=== PATIENT | male | born 1940 | race Caucasian/White ===

== ENCOUNTER 2023-11-28 11:52 | Inpatient (IN) | payer MEDICARE, OTHER, SELFPAY ==
[2023-11-28 12:47] LABS: #Basophils 0.1 thou/uL (0.0-0.2); #Eosinphils 0.2 thou/uL (0.0-0.7); #Monocytes 1.4 thou/uL (0.11-0.59); #Neutrophils 7.5 thou/uL (1.40-6.50); %Basophils 0.7 % (0.0-1.0); %Eosinophils 1.8 % (0.0-10.0); %Lymphocytes 8.1 % (21.0-51.0); %Monocytes 13.3 % (0.0-10.0); %Neutrophils 73.9 % (42.0-75.0); Hematocrit 24.5 % (42.0-52.0); Hemoglobin 7.9 g/dL (14.0-18.0); Mean Corpuscular HGB CONC 32.2 g/dL (32.0-36.0); Mean Corpuscular Hemoglobin 31.2 pg (27.0-31.0); Mean Corpuscular Volume 96.8 fl (78.0-98.0); Mean Platelet Volume 9.6 fL (7.4-10.4); Platelet Count 419 10x3/uL (130-400); RBC Distribution Width 20.6 % (11.5-14.5); Red Blood Cell (RBC) Count 2.53 mill/uL (4.70-6.10); White Blood Cell (WBC) Count 10.2 10x3/uL (4.8-10.8)
[2023-11-28] MEDS ORDERED: Ondansetron PF 4 MG/2 ML Vial ONE (12:54)
[2023-11-28 13:02] LABS: INR-International Normal Ratio 1.6; Prothrombin Time 19.1 sec (12.0-14.7)
[2023-11-28 13:14] LABS: ALT (SGPT) 39 U/L (8-55); AST (SGOT) 55 U/L (5-34); Albumin 3.6 g/dL (3.4-4.8); Alkaline Phosphatase 484 U/L (40-110); Anion Gap 14 mmol/L (10-20); BUN (Urea Nitrogen) 31 mg/dL (8.4-25.7); Calc. Creatinine Clearance 0 mL/min (70-130); Calcium 9.6 mg/dL (7.8-10.44); Carbon Dioxide 26 mmol/L (23-31); Chloride 99 mmol/L (98-107); Estimated GFR 38; Globulin 3.7 g/dL (2.4-3.5); Glucose 135 mg/dL (83-110); Lipase 67 U/L (8-78); Protein, Total 7.3 g/dL (5.8-8.1); Sodium 133 mmol/L (136-145)
[2023-11-28 13:16] LABS: Troponin I 0.046 ng/mL (< 0.028)
[2023-11-28 13:19] LABS: Critical Call Chemistry NUR.LR15@1319; Potassium 6.3 mmol/L (3.5-5.1)
[2023-11-28] MEDS ORDERED: Furosemide 40 MG (4 mL) VIAL ONE (14:53)
[2023-11-28] MEDS ORDERED: Senokot S 8.6-50 MG TAB PO PRN (15:14)
[2023-11-28] MEDS ORDERED: Calcium Carbonate 500 MG ChewTAB PO PRN (15:14)
[2023-11-28] MEDS ORDERED: Ondansetron ODT 4 MG TAB PO PRN (15:14)
[2023-11-28] MEDS: Albumin 5% 25 GM (500 mL) BOT IVPB SCH (16:13)
[2023-11-28] MEDS: LOKELMA 10 GM PACKET PO SCH ×2 (16:14→22:55)
[2023-11-28 16:55] LABS: Anion Gap 16 mmol/L (10-20); BUN (Urea Nitrogen) 32 mg/dL (8.4-25.7); Calc. Creatinine Clearance 0 mL/min (70-130); Calcium 9.3 mg/dL (7.8-10.44); Carbon Dioxide 20 mmol/L (23-31); Chloride 102 mmol/L (98-107); Estimated GFR 35; Glucose 124 mg/dL (83-110); Sodium 132 mmol/L (136-145)
[2023-11-28 17:04] LABS: Critical Call Chemistry NUR.MKL@1704; Potassium 6.3 mmol/L (3.5-5.1)
[2023-11-28] MEDS ORDERED: Dextrose 10% in Water 250 ML ONE (17:57)
[2023-11-28] MEDS ORDERED: Sodium Polystyrene Sulfonate 15 GM (60 mL) BOT ONE (17:58)
[2023-11-28] MEDS ORDERED: Insulin Regular 300 UNITS/3 ML VIAL ONE (17:58)
[2023-11-28] MEDS ORDERED: Acetaminophen 325 MG TAB ONE (17:59)
[2023-11-28] MEDS: Acetaminophen 325 MG TAB PO PRN (18:20)
[2023-11-28] MEDS: Dextrose 50% Abboject 50 ML SYRINGE SLOW IVP PRN (18:27)
[2023-11-28] MEDS: Sodium Polystyrene Sulfonate 15 GM (60 mL) BOT PO SCH (18:29)
[2023-11-28] MEDS: Insulin Regular 300 UNITS/3 ML VIAL IVP SCH (18:48)
[2023-11-28 21:06] LABS: Troponin I 0.047 ng/mL (< 0.028)
[2023-11-28] MEDS: Rosuvastatin 5 MG TAB PO SCH (22:56)
[2023-11-28 23:07] LABS: Potassium 5.3 mmol/L (3.5-5.1)
[2023-11-29] MEDS: Albumin 25% 25 GM (100 mL) BOT IVPB SCH (01:50)
[2023-11-29 05:05] LABS: #Eosinphils 0.3 thou/uL (0.0-0.7); #Monocytes 1.1 thou/uL (0.11-0.59); #Neutrophils 4.2 thou/uL (1.40-6.50); %Basophils 0.6 % (0.0-1.0); %Eosinophils 4.9 % (0.0-10.0); %Monocytes 16.2 % (0.0-10.0); %Neutrophils 64.2 % (42.0-75.0); Hematocrit 20.1 % (42.0-52.0); Hemoglobin 6.5 g/dL (14.0-18.0); Mean Corpuscular HGB CONC 32.3 g/dL (32.0-36.0); Mean Corpuscular Hemoglobin 30.5 pg (27.0-31.0); Mean Corpuscular Volume 94.4 fl (78.0-98.0); Mean Platelet Volume 9.7 fL (7.4-10.4); RBC Distribution Width 20.5 % (11.5-14.5); Red Blood Cell (RBC) Count 2.13 mill/uL (4.70-6.10); White Blood Cell (WBC) Count 6.5 10x3/uL (4.8-10.8)
[2023-11-29 05:06] LABS: Platelet Count 300 10x3/uL (130-400)
[2023-11-29 05:18] LABS: INR-International Normal Ratio 1.4; Prothrombin Time 17.4 sec (12.0-14.7)
[2023-11-29 05:35] LABS: ALT (SGPT) 29 U/L (8-55); AST (SGOT) 41 U/L (5-34); Albumin 3.8 g/dL (3.4-4.8); Alkaline Phosphatase 379 U/L (40-110); Anion Gap 14 mmol/L (10-20); BUN (Urea Nitrogen) 35 mg/dL (8.4-25.7); Bilirubin, Total 1.3 mg/dL (0.2-1.2); Calc. Creatinine Clearance 26 mL/min (70-130); Calcium 9.1 mg/dL (7.8-10.44); Carbon Dioxide 26 mmol/L (23-31); Chloride 99 mmol/L (98-107); Estimated GFR 29; Glucose 106 mg/dL (83-110); Iron 33 ug/dL (65-175); Magnesium 2.2 mg/dL (1.6-2.6); Potassium 4.5 mmol/L (3.5-5.1); Protein, Total 6.8 g/dL (5.8-8.1); Sodium 134 mmol/L (136-145)
[2023-11-29 05:38] LABS: Iron Binding Capacity, Total 280 mcg/dL (261-462)
[2023-11-29] MEDS: Folic Acid 1 MG TAB PO SCH (09:36)
[2023-11-29] MEDS: Multivit, Therapeutic 1 TAB PO SCH (09:36)
[2023-11-29] MEDS: Thiamine 100 MG TAB PO SCH (09:36)
[2023-11-29] MEDS ORDERED: Piperacillin/Tazobactam 3.375 GM in Sodium Chloride 0.9% 100 ML IVPB SCH (10:15)
[2023-11-29] MEDS: Furosemide 40 MG (4 mL) VIAL SLOW IVP SCH (10:43)
[2023-11-29] MEDS: EPOETIN ALFA-EPBX 10,000 UNITS/ML VIAL SC SCH (10:45)
[2023-11-29] MEDS: Cefepime 1 GM in Sodium Chloride 0.9% 100 ML IVPB SCH (11:07)
[2023-11-29] MEDS: metroNIDAZOLE 500 MG in Premix 1 BAG IVPB SCH (11:55)
[2023-11-29] MEDS ORDERED: Furosemide 40 MG (4 mL) VIAL SLOW IVP SCH (17:30)
[2023-11-29] MEDS ORDERED: Furosemide 100 MG in Sodium Chloride 0.9% 100 ML IVPB SCH (17:45)
[2023-11-29] MEDS: DOBUTamine 500 mg/250 ml 250 ML IVPB SCH (18:41)
[2023-11-29] MEDS: Furosemide 100 MG, Admixture Fee 1 EACH in Sodium Chloride 0.9% 90 ML IVPB SCH (18:41)
[2023-11-29 18:44] LABS: Creatinine, Urine 106.65 mg/dL (63-166)
[2023-11-29] MEDS ORDERED: Ipratropium/Albuterol 3 ML NEB NEB PRN (23:35)
[2023-11-30] MEDS: Ipratropium/Albuterol 3 ML NEB NEB SCH (01:56)
[2023-11-30 06:45] LABS: Anion Gap 17 mmol/L (10-20); BUN (Urea Nitrogen) 40 mg/dL (8.4-25.7); Calc. Creatinine Clearance 25 mL/min (70-130); Calcium 8.9 mg/dL (7.8-10.44); Carbon Dioxide 22 mmol/L (23-31); Chloride 97 mmol/L (98-107); Estimated GFR 27; Glucose 123 mg/dL (83-110); Potassium 3.6 mmol/L (3.5-5.1); Sodium 132 mmol/L (136-145)
[2023-11-30] MEDS: Ferrous Gluconate 324 MG TAB PO SCH (09:33)
[2023-11-30] MEDS: Cholecalciferol 1,000 UNITS (25 MCG) TAB PO SCH (09:33)
[2023-11-30 10:10] LABS: #Eosinphils 0.2 thou/uL (0.0-0.7); #Monocytes 0.8 thou/uL (0.11-0.59); #Neutrophils 6.2 thou/uL (1.40-6.50); %Basophils 0.1 % (0.0-1.0); %Lymphocytes 4.2 % (21.0-51.0); %Monocytes 10.6 % (0.0-10.0); %Neutrophils 82.2 % (42.0-75.0); Hematocrit 21.1 % (42.0-52.0); Hemoglobin 7.1 g/dL (14.0-18.0); Mean Corpuscular HGB CONC 33.6 g/dL (32.0-36.0); Mean Corpuscular Hemoglobin 31.7 pg (27.0-31.0); Mean Corpuscular Volume 94.2 fl (78.0-98.0); Mean Platelet Volume 9.4 fL (7.4-10.4); Platelet Count 249 10x3/uL (130-400); RBC Distribution Width 19.7 % (11.5-14.5); Red Blood Cell (RBC) Count 2.24 mill/uL (4.70-6.10); White Blood Cell (WBC) Count 7.5 10x3/uL (4.8-10.8)
[2023-12-01 03:59] LABS: #Eosinphils 0.3 thou/uL (0.0-0.7); #Monocytes 1.3 thou/uL (0.11-0.59); #Neutrophils 5.4 thou/uL (1.40-6.50); %Basophils 0.3 % (0.0-1.0); %Eosinophils 3.4 % (0.0-10.0); %Monocytes 16.9 % (0.0-10.0); %Neutrophils 72.6 % (42.0-75.0); Hemoglobin 7.4 g/dL (14.0-18.0); Mean Corpuscular HGB CONC 33.6 g/dL (32.0-36.0); Mean Corpuscular Hemoglobin 30.7 pg (27.0-31.0); Mean Platelet Volume 9.7 fL (7.4-10.4); Platelet Count 255 10x3/uL (130-400); RBC Distribution Width 19.5 % (11.5-14.5); Red Blood Cell (RBC) Count 2.41 mill/uL (4.70-6.10); White Blood Cell (WBC) Count 7.5 10x3/uL (4.8-10.8)
[2023-12-01 04:23] LABS: Mean Corpuscular Volume 91.3 fl (78.0-98.0)
[2023-12-01 04:47] LABS: Anion Gap 18 mmol/L (10-20); BUN (Urea Nitrogen) 40 mg/dL (8.4-25.7); Calc. Creatinine Clearance 28 mL/min (70-130); Carbon Dioxide 19 mmol/L (23-31); Chloride 99 mmol/L (98-107); Estimated GFR 31; Glucose 102 mg/dL (83-110); Potassium 3.3 mmol/L (3.5-5.1); Sodium 133 mmol/L (136-145)
[2023-12-01] MEDS: Potassium Chloride 20 MEQ TAB PO SCH ×2 (09:05→17:29)
[2023-12-01] MEDS: Metoprolol Tartrate 5 MG (5 mL) VIAL IVP SCH (22:18)
[2023-12-02] MEDS: Melatonin 3 MG TAB PO SCH (01:36)
[2023-12-02] MEDS: Metoprolol Tartrate 5 MG (5 mL) VIAL IVP SCH (03:40)
[2023-12-02 05:37] LABS: #Eosinphils 0.5 thou/uL (0.0-0.7); #Monocytes 0.9 thou/uL (0.11-0.59); #Neutrophils 4.6 thou/uL (1.40-6.50); %Basophils 0.5 % (0.0-1.0); %Lymphocytes 5.5 % (21.0-51.0); %Monocytes 14.3 % (0.0-10.0); %Neutrophils 72.2 % (42.0-75.0); Hematocrit 24.5 % (42.0-52.0); Mean Corpuscular HGB CONC 32.7 g/dL (32.0-36.0); Mean Corpuscular Hemoglobin 31.1 pg (27.0-31.0); Mean Corpuscular Volume 95.3 fl (78.0-98.0); Mean Platelet Volume 9.4 fL (7.4-10.4); Platelet Count 263 10x3/uL (130-400); RBC Distribution Width 20.2 % (11.5-14.5); Red Blood Cell (RBC) Count 2.57 mill/uL (4.70-6.10); White Blood Cell (WBC) Count 6.4 10x3/uL (4.8-10.8)
[2023-12-02 05:53] LABS: Anion Gap 14 mmol/L (10-20); BUN (Urea Nitrogen) 34 mg/dL (8.4-25.7); Calc. Creatinine Clearance 36 mL/min (70-130); Carbon Dioxide 22 mmol/L (23-31); Chloride 101 mmol/L (98-107); Estimated GFR 41; Glucose 95 mg/dL (83-110); Magnesium 2.1 mg/dL (1.6-2.6); Potassium 3.6 mmol/L (3.5-5.1); Sodium 133 mmol/L (136-145)
[2023-12-02] MEDS: Metoprolol Tartrate 50 MG TAB PO SCH (08:01)
[2023-12-03 04:41] LABS: #Eosinphils 0.4 thou/uL (0.0-0.7); #Monocytes 1.1 thou/uL (0.11-0.59); #Neutrophils 4.1 thou/uL (1.40-6.50); %Basophils 0.5 % (0.0-1.0); %Eosinophils 6.4 % (0.0-10.0); %Lymphocytes 7.2 % (21.0-51.0); %Monocytes 17.6 % (0.0-10.0); %Neutrophils 67.8 % (42.0-75.0); Hematocrit 24.8 % (42.0-52.0); Mean Corpuscular HGB CONC 32.3 g/dL (32.0-36.0); Mean Corpuscular Volume 96.1 fl (78.0-98.0); Mean Platelet Volume 9.2 fL (7.4-10.4); Platelet Count 257 10x3/uL (130-400); RBC Distribution Width 20.2 % (11.5-14.5); Red Blood Cell (RBC) Count 2.58 mill/uL (4.70-6.10)
[2023-12-03 05:06] LABS: Anion Gap 15 mmol/L (10-20); BUN (Urea Nitrogen) 35 mg/dL (8.4-25.7); Calc. Creatinine Clearance 40 mL/min (70-130); Calcium 8.7 mg/dL (7.8-10.44); Carbon Dioxide 21 mmol/L (23-31); Chloride 102 mmol/L (98-107); Estimated GFR 48; Glucose 87 mg/dL (83-110); Potassium 3.9 mmol/L (3.5-5.1); Sodium 134 mmol/L (136-145)
[2023-12-03] MEDS: Cefepime 1 GM in Sodium Chloride 0.9% 100 ML IVPB SCH (07:52)
[2023-12-03] MEDS: Saccharomyces boulardii 250 MG CAP PO SCH (12:11)
[2023-12-03] MEDS: Metolazone 5 MG TAB PO SCH (12:11)
[2023-12-03] MEDS: Clindamycin 150 MG CAP PO SCH (14:29)
[2023-12-03] MEDS: Metoprolol Tartrate 50 MG TAB PO SCH ×2 (14:34→22:48)
[2023-12-03] MEDS: Heparin 5,000 UNITS/ML VIAL SC SCH (20:10)
[2023-12-04 05:05] LABS: Anion Gap 14 mmol/L (10-20); BUN (Urea Nitrogen) 34 mg/dL (8.4-25.7); Calc. Creatinine Clearance 41 mL/min (70-130); Calcium 9.2 mg/dL (7.8-10.44); Carbon Dioxide 23 mmol/L (23-31); Chloride 104 mmol/L (98-107); Estimated GFR 50; Glucose 93 mg/dL (83-110); Potassium 3.6 mmol/L (3.5-5.1); Sodium 137 mmol/L (136-145)
[2023-12-04] MEDS: Metolazone 2.5 MG TAB PO SCH (08:35)
[2023-12-04] MEDS: Empagliflozin 10 MG TAB PO SCH (08:36)
[2023-12-04] MEDS: Saccharomyces boulardii 250 MG CAP PO SCH (08:36)
[2023-12-04] MEDS: Potassium Chloride 20 MEQ TAB PO SCH (08:37)
[2023-12-04] MEDS ORDERED: methylPREDNISolone Sod Succ/PF 125 MG/2 ML VIAL IVP SCH (09:45)
[2023-12-04 10:03] LABS: ALT (SGPT) 19 U/L (8-55); AST (SGOT) 30 U/L (5-34); Albumin 3.8 g/dL (3.4-4.8); Alkaline Phosphatase 273 U/L (40-110); Bilirubin, Direct 0.6 mg/dL (0.1-0.3); Protein, Total 6.8 g/dL (5.8-8.1)
[2023-12-05 04:17] LABS: Hematocrit 24.2 % (42.0-52.0); Hemoglobin 7.8 g/dL (14.0-18.0); Manual Diff?? YES; Mean Corpuscular HGB CONC 32.2 g/dL (32.0-36.0); Mean Corpuscular Hemoglobin 31.1 pg (27.0-31.0); Mean Corpuscular Volume 96.4 fl (78.0-98.0); Platelet Count 233 10x3/uL (130-400); RBC Distribution Width 19.6 % (11.5-14.5); Red Blood Cell (RBC) Count 2.51 mill/uL (4.70-6.10); White Blood Cell (WBC) Count 4.8 10x3/uL (4.8-10.8)
[2023-12-05 04:20] LABS: Delete Auto Diff?? YES
[2023-12-05 04:53] LABS: Anion Gap 14 mmol/L (10-20); BUN (Urea Nitrogen) 32 mg/dL (8.4-25.7); Calc. Creatinine Clearance 41 mL/min (70-130); Calcium 9.1 mg/dL (7.8-10.44); Carbon Dioxide 24 mmol/L (23-31); Chloride 101 mmol/L (98-107); Estimated GFR 50; Glucose 108 mg/dL (83-110); Potassium 3.2 mmol/L (3.5-5.1); Sodium 136 mmol/L (136-145)
[2023-12-05 04:54] LABS: Anisocytosis SLIGHT = 6-15 cells HPF (0-5); Band 5 % (5-11); CellaVision Operator ID LAB.CLH1; Eosinophils 7 % (0-10); Hypochromia SLIGHT = 6-15 cells HPF (0-5); Lymphocytes 7 % (21-51); Monocytes 12 % (0-10); Neutrophil 66 % (42-75); Platelet Adequacy Comment Platelets Normal; Polychromasia SLIGHT = 2-3 cells HPF (0-2); Target Cells SLIGHT = 2-5 cells HPF (0-1); Total Cell Count 100
[2023-12-05] MEDS ORDERED: Electrolyte Replacement Protocol 1 EACH FS SCH (07:30)
[2023-12-05] MEDS ORDERED: Electrolyte Replacement Protocol FS PRN (07:45)
[2023-12-05] MEDS: Potassium Chloride 20 MEQ TAB PO SCH (08:10)
[2023-12-05 15:49] VITALS: BMI 26.1
[2023-12-06 05:34] LABS: Hematocrit 24.6 % (42.0-52.0); Hemoglobin 7.9 g/dL (14.0-18.0); Manual Diff?? YES; Mean Corpuscular HGB CONC 32.1 g/dL (32.0-36.0); Mean Corpuscular Hemoglobin 30.2 pg (27.0-31.0); Mean Corpuscular Volume 93.9 fl (78.0-98.0); Mean Platelet Volume 9.5 fL (7.4-10.4); Platelet Count 229 10x3/uL (130-400); RBC Distribution Width 19.6 % (11.5-14.5); Red Blood Cell (RBC) Count 2.62 mill/uL (4.70-6.10); White Blood Cell (WBC) Count 4.9 10x3/uL (4.8-10.8)
[2023-12-06 05:49] LABS: Delete Auto Diff?? YES
[2023-12-06 06:04] LABS: Anion Gap 14 mmol/L (10-20); BUN (Urea Nitrogen) 26 mg/dL (8.4-25.7); Calc. Creatinine Clearance 41 mL/min (70-130); Calcium 9.7 mg/dL (7.8-10.44); Carbon Dioxide 28 mmol/L (23-31); Chloride 100 mmol/L (98-107); Estimated GFR 52; Glucose 94 mg/dL (83-110); Potassium 2.9 mmol/L (3.5-5.1); Sodium 139 mmol/L (136-145)
[2023-12-06 06:18] LABS: Anisocytosis SLIGHT = 6-15 cells HPF (0-5); CellaVision Operator ID lab.abc; Eosinophils 11 % (0-10); Hypochromia SLIGHT = 6-15 cells HPF (0-5); Lymphocytes 6 % (21-51); Monocytes 14 % (0-10); Neutrophil 67 % (42-75); Platelet Adequacy Comment Platelets Normal; Reactive Lymphocytes 1 % (0-10); Smudge Cells 14.9 %; Total Cell Count 101
[2023-12-06] MEDS: Potassium Chloride 20 MEQ TAB PO SCH (08:43)
[2023-12-06 13:15] LABS: Troponin I 0.032 ng/mL (< 0.028)
[2023-12-06 13:27] LABS: Potassium 3.4 mmol/L (3.5-5.1)
[2023-12-06] MEDS: Furosemide 40 MG (4 mL) VIAL SLOW IVP SCH (14:20)
[2023-12-06 17:14] LABS: Albumin-Ur 35.8 % (.); Alpha 1 - Ur 2.5 % (.); Alpha 2 - Ur 11.8 % (.); Beta-Ur 23.5 % (.); Gamma-Ur 26.4 % (.); M-Spike,% Not Observed % (Not Observed); Protein, Urine 21.9 mg/dL (Not Estab.)
[2023-12-06 17:14] LABS: A/G Ratio 1.1 (0.7-1.7); Albumin 3.2 g/dL (2.9-4.4); Alpha 1 0.4 g/dL (0.0-0.4); Alpha 2 0.7 g/dL (0.4-1.0); Beta 0.8 g/dL (0.7-1.3); Globulin, Total 2.9 g/dL (2.2-3.9); M-Spike Not Observed g/dL (Not Observed)
[2023-12-06 17:33] LABS: Troponin I 0.031 ng/mL (< 0.028)
[2023-12-07] MEDS: DOBUTamine 500 mg/250 ml 250 ML IVPB SCH (01:56)
[2023-12-07] MEDS: Ondansetron PF 4 MG/2 ML Vial IVP PRN (06:19)
[2023-12-07 06:37] LABS: #Eosinphils 0.7 thou/uL (0.0-0.7); #Monocytes 1.3 thou/uL (0.11-0.59); #Neutrophils 4.2 thou/uL (1.40-6.50); %Basophils 0.6 % (0.0-1.0); %Eosinophils 9.4 % (0.0-10.0); %Lymphocytes 10.5 % (21.0-51.0); %Monocytes 18.7 % (0.0-10.0); %Neutrophils 60.4 % (42.0-75.0); Hematocrit 25.1 % (42.0-52.0); Hemoglobin 8.3 g/dL (14.0-18.0); Mean Corpuscular HGB CONC 33.1 g/dL (32.0-36.0); Mean Corpuscular Hemoglobin 31.2 pg (27.0-31.0); Mean Corpuscular Volume 94.4 fl (78.0-98.0); Mean Platelet Volume 9.5 fL (7.4-10.4); Platelet Count 214 10x3/uL (130-400); RBC Distribution Width 19.2 % (11.5-14.5); Red Blood Cell (RBC) Count 2.66 mill/uL (4.70-6.10); White Blood Cell (WBC) Count 6.9 10x3/uL (4.8-10.8)
[2023-12-07 07:03] LABS: Anion Gap 13 mmol/L (10-20); BUN (Urea Nitrogen) 24 mg/dL (8.4-25.7); Calc. Creatinine Clearance 41 mL/min (70-130); Calcium 9.6 mg/dL (7.8-10.44); Carbon Dioxide 31 mmol/L (23-31); Chloride 99 mmol/L (98-107); Estimated GFR 53; Glucose 139 mg/dL (83-110); Potassium 3.5 mmol/L (3.5-5.1); Sodium 139 mmol/L (136-145)
[2023-12-07] MEDS ORDERED: Magnesium 2 GM/50 ML(in water) 2 GM in Premix 1 BAG IVPB SCH (08:00)
[2023-12-07] MEDS ORDERED: Potassium Chloride 20 MEQ TAB PO SCH (08:00)
[2023-12-07] MEDS: Potassium Chloride 20 MEQ TAB PO SCH ×2 (08:25→12:59)
[2023-12-07] MEDS: Magnesium 2 GM/50 ML(in water) 2 GM in Premix 1 BAG IVPB SCH (08:25)
[2023-12-07 18:23] LABS: Potassium 3.8 mmol/L (3.5-5.1)
[2023-12-08 05:15] LABS: Magnesium 2.2 mg/dL (1.6-2.6)
[2023-12-08 08:23] LABS: Anion Gap 14 mmol/L (10-20); BUN (Urea Nitrogen) 21 mg/dL (8.4-25.7); Calc. Creatinine Clearance 48 mL/min (70-130); Calcium 9.6 mg/dL (7.8-10.44); Carbon Dioxide 29 mmol/L (23-31); Chloride 99 mmol/L (98-107); Estimated GFR 61; Glucose 117 mg/dL (83-110); Potassium 3.7 mmol/L (3.5-5.1); Sodium 138 mmol/L (136-145)
[2023-12-09 05:07] LABS: Anion Gap 15 mmol/L (10-20); BUN (Urea Nitrogen) 20 mg/dL (8.4-25.7); Calc. Creatinine Clearance 48 mL/min (70-130); Calcium 9.3 mg/dL (7.8-10.44); Carbon Dioxide 29 mmol/L (23-31); Chloride 97 mmol/L (98-107); Estimated GFR 66; Glucose 104 mg/dL (83-110); Potassium 3.5 mmol/L (3.5-5.1); Sodium 137 mmol/L (136-145)
[2023-12-09 07:58] VITALS: TEMP 99.4
[2023-12-09] MEDS: Potassium Chloride 20 MEQ TAB PO SCH (08:46)
[2023-12-09 16:05] VITALS: BP 99/57
== END 2023-12-09 17:16 | disposition home health service (06) | DRG 291 ==
LOC: ERS 11:52 → SUATTDRO 11:52 → ERHOLD 14:58 → OBSVTOIN 15:08 → 2NO 20:06 → IMCU/EMU 11-29 22:29
PROVIDERS: ADMIT Internal Medicine; ATTEND Internal Medicine
PROC: 30243N1 Transfusion of Nonautologous Red Blood Cells into Central Vein, Percutaneous Approach (ICD-10-PCS; principal; 2023-11-29)
DX: I13.0 Hypertensive heart and chronic kidney disease with heart failure and stage 1 through stage 4 chronic kidney disease, or unspecified chronic kidney disease (principal); I50.33 Acute on chronic diastolic (congestive) heart failure; J96.01 Acute respiratory failure with hypoxia; E87.1 Hypo-osmolality and hyponatremia; N17.9 Acute kidney failure, unspecified; E87.20 Acidosis, unspecified; N18.4 Chronic kidney disease, stage 4 (severe); L03.115 Cellulitis of right lower limb; I31.39 Other pericardial effusion (noninflammatory); N25.81 Secondary hyperparathyroidism of renal origin; J44.1 Chronic obstructive pulmonary disease with (acute) exacerbation; E78.5 Hyperlipidemia, unspecified; K70.30 Alcoholic cirrhosis of liver without ascites; E87.5 Hyperkalemia; D63.1 Anemia in chronic kidney disease; F10.10 Alcohol abuse, uncomplicated; I48.91 Unspecified atrial fibrillation; E78.00 Pure hypercholesterolemia, unspecified; I07.1 Rheumatic tricuspid insufficiency; D50.9 Iron deficiency anemia, unspecified; E55.9 Vitamin D deficiency, unspecified; E87.6 Hypokalemia; J45.909 Unspecified asthma, uncomplicated; Z87.891 Personal history of nicotine dependence; Z86.73 Personal history of transient ischemic attack (TIA), and cerebral infarction without residual deficits; Z88.0 Allergy status to penicillin; Z91.030 Bee allergy status; Z79.899 Other long term (current) drug therapy
CPT/HCPCS: 36415; 36430; 71045; 76705; 76770; 80048; 80053; 80076; 80307; 82140; 82306; 82533; 82570; 82728; 83540; 83550; 83690; 83735; 83880; 83970; 84155; 84156; 84165; 84166; 84484; 85025; 85610; 85730; 86850; 86900; 86901; 93005; 93010; 93306; 93970; 94640; 96374; 96375; J0692; J1250; J1644; J1815; J1940; J2405; J3475; J3490; J7620; J7999; P9016; P9045; P9047; Q5106

== ENCOUNTER 2023-12-18 08:02 | Inpatient (IN) | payer MEDICARE ==
[2023-12-18 08:35] LABS: #Basophils 0.1 thou/uL (0.0-0.2); #Eosinphils 0.9 thou/uL (0.0-0.7); #Monocytes 1.6 thou/uL (0.11-0.59); #Neutrophils 6.4 thou/uL (1.40-6.50); %Basophils 0.7 % (0.0-1.0); %Eosinophils 8.3 % (0.0-10.0); %Lymphocytes 10.4 % (21.0-51.0); %Monocytes 15.2 % (0.0-10.0); %Neutrophils 60.8 % (42.0-75.0); Hematocrit 21.9 % (42.0-52.0); Hemoglobin 7.2 g/dL (14.0-18.0); Mean Corpuscular HGB CONC 32.9 g/dL (32.0-36.0); Mean Corpuscular Hemoglobin 30.9 pg (27.0-31.0); Mean Platelet Volume 10.3 fL (7.4-10.4); Platelet Count 259 10x3/uL (130-400); RBC Distribution Width 20.6 % (11.5-14.5); Red Blood Cell (RBC) Count 2.33 mill/uL (4.70-6.10); White Blood Cell (WBC) Count 10.5 10x3/uL (4.8-10.8)
[2023-12-18 08:58] LABS: Troponin I 0.051 ng/mL (< 0.028)
[2023-12-18 08:59] LABS: ALT (SGPT) 24 U/L (8-55); AST (SGOT) 45 U/L (5-34); Albumin 3.5 g/dL (3.4-4.8); Alkaline Phosphatase 256 U/L (40-110); Anion Gap 19 mmol/L (10-20); BUN (Urea Nitrogen) 64 mg/dL (8.4-25.7); Bilirubin, Total 0.8 mg/dL (0.2-1.2); Calc. Creatinine Clearance 0 mL/min (70-130); Calcium 9.3 mg/dL (7.8-10.44); Carbon Dioxide 24 mmol/L (23-31); Chloride 98 mmol/L (98-107); Estimated GFR 22; Globulin 3.1 g/dL (2.4-3.5); Glucose 134 mg/dL (83-110); Magnesium 3.7 mg/dL (1.6-2.6); Protein, Total 6.6 g/dL (5.8-8.1); Sodium 135 mmol/L (136-145)
[2023-12-18 09:08] LABS: Potassium 6.1 mmol/L (3.5-5.1)
[2023-12-18] MEDS ORDERED: Albuterol 2.5 MG (3 mL) NEB ONE (09:53)
[2023-12-18] MEDS ORDERED: CALCIUM GLUC 1 GM (50 ML) BAG ONE (09:54)
[2023-12-18] MEDS ORDERED: Insulin Regular 300 UNITS/3 ML VIAL ONE (09:55)
[2023-12-18 10:05] LABS: Analyzer IN Cardio ER; Base Excess (BEa) 1.4 mEq/L (-2.0 to +3.0); Carboxyhemoglobin (COHb) 0.2 gm% (0.0-3.0); Hematocrit-ABG 24 % (42.0-52.0); Hemoglobin (Hb) 8.2 g/dL (14.0-18.0); O2 Tension (PaO2), arterial 75.6 mmHg (> 60.0); Potassium - ABG Lab 5.95 mmol/L (3.70-5.30); pH, Arterial 7.472 (7.35-7.45)
[2023-12-18 10:09] LABS: Puncture Site RBA
[2023-12-18] MEDS ORDERED: Atropine Sulfate 1 mg/10 ml Syringe ONE (10:54)
[2023-12-18] MEDS ORDERED: DOBUTamine 500 mg/250 ml 500 MG in Premix 1 BAG IVPB SCH (12:00)
[2023-12-18] MEDS ORDERED: DOBUTamine 500 mg/250 ml 250 ML IVPB SCH ×2 (12:00→14:15)
[2023-12-18 12:31] LABS: Anion Gap 17 mmol/L (10-20); BUN (Urea Nitrogen) 63 mg/dL (8.4-25.7); Calc. Creatinine Clearance 0 mL/min (70-130); Calcium 9.4 mg/dL (7.8-10.44); Carbon Dioxide 25 mmol/L (23-31); Chloride 98 mmol/L (98-107); Estimated GFR 22; Glucose 137 mg/dL (83-110); Potassium 5.6 mmol/L (3.5-5.1); Sodium 134 mmol/L (136-145)
[2023-12-18] MEDS ORDERED: Ondansetron PF 4 MG/2 ML Vial IVP PRN (13:18)
[2023-12-18] MEDS ORDERED: Electrolyte Replacement Protocol 1 EACH FS SCH (13:30)
[2023-12-18 14:13] LABS: Iron 158 ug/dL (65-175); Iron Binding Capacity, Total 300 mcg/dL (261-462)
[2023-12-18] MEDS: Dextrose 50% Abboject 50 ML SYRINGE SLOW IVP SCH (14:18)
[2023-12-18] MEDS: Midodrine HCl 5 MG TAB PO SCH (14:18)
[2023-12-18] MEDS: LOKELMA 10 GM PACKET PO SCH (14:19)
[2023-12-18 17:32] VITALS: BMI 25.3
[2023-12-18] MEDS: Folic Acid 1 MG TAB PO SCH (18:29)
[2023-12-18] MEDS: Multivit, Therapeutic 1 TAB PO SCH (18:30)
[2023-12-18] MEDS: Thiamine HCl 200 MG/2 ML VIAL SLOW IVP SCH (18:30)
[2023-12-18] MEDS: Albumin 25% 25 GM (100 mL) BOT IVPB SCH (18:58)
[2023-12-18] MEDS ORDERED: Apixaban 5 MG TAB PO SCH (21:00)
[2023-12-18] MEDS: Pantoprazole 40 MG VIAL IVP SCH (21:46)
[2023-12-19] MEDS ORDERED: Thiamine 100 MG TAB PO SCH (00:15)
[2023-12-19] MEDS: Lorazepam 1 MG TAB PO PRN (00:21)
[2023-12-19] MEDS: Thiamine HCl 200 MG/2 ML VIAL SLOW IVP SCH (00:21)
[2023-12-19] MEDS: Lorazepam 2 MG/ML VIAL ONE (00:22)
[2023-12-19] MEDS: chlordiazePOXIDE HCl 25 MG CAP PO SCH (00:29)
[2023-12-19] MEDS: Haloperidol Lactate 5 MG/ML VIAL SLOW IVP SCH (04:14)
[2023-12-19] MEDS ORDERED: Dexmedetomidine In 0.9 % NaCl 100 ML IVPB SCH (05:00)
[2023-12-19] MEDS: DOBUTamine 500 mg/250 ml 250 ML IVPB SCH (05:08)
[2023-12-19 05:18] LABS: #Eosinphils 0.2 thou/uL (0.0-0.7); #Monocytes 1.1 thou/uL (0.11-0.59); #Neutrophils 6.6 thou/uL (1.40-6.50); %Basophils 0.5 % (0.0-1.0); %Eosinophils 1.7 % (0.0-10.0); %Lymphocytes 6.5 % (21.0-51.0); %Monocytes 13.2 % (0.0-10.0); %Neutrophils 76.5 % (42.0-75.0); Hematocrit 21.2 % (42.0-52.0); Hemoglobin 7.1 g/dL (14.0-18.0); Mean Corpuscular HGB CONC 33.5 g/dL (32.0-36.0); Mean Corpuscular Hemoglobin 30.7 pg (27.0-31.0); Mean Corpuscular Volume 91.8 fl (78.0-98.0); Mean Platelet Volume 10.5 fL (7.4-10.4); Platelet Count 208 10x3/uL (130-400); RBC Distribution Width 20.4 % (11.5-14.5); Red Blood Cell (RBC) Count 2.31 mill/uL (4.70-6.10); White Blood Cell (WBC) Count 8.6 10x3/uL (4.8-10.8)
[2023-12-19 05:31] LABS: Anion Gap 19 mmol/L (10-20); BUN (Urea Nitrogen) 70 mg/dL (8.4-25.7); Calc. Creatinine Clearance 19 mL/min (70-130); Calcium 9.3 mg/dL (7.8-10.44); Carbon Dioxide 22 mmol/L (23-31); Chloride 99 mmol/L (98-107); Estimated GFR 21; Glucose 127 mg/dL (83-110); Sodium 134 mmol/L (136-145)
[2023-12-19] MEDS: Sodium Chloride 0.9% 250 ML IV SCH (09:20)
[2023-12-19] MEDS: Multivit, Therapeutic 1 TAB PO SCH (09:55)
[2023-12-19] MEDS: Folic Acid 1 MG TAB PO SCH (09:55)
[2023-12-19] MEDS: LOKELMA 10 GM PACKET PO SCH (10:31)
[2023-12-19] MEDS ORDERED: Lorazepam 1 MG TAB PO PRN (13:29)
[2023-12-19] MEDS: Acetaminophen 325 MG TAB PO PRN (17:54)
[2023-12-19] MEDS: Ipratropium/Albuterol 3 ML NEB NEB PRN (20:21)
[2023-12-19] MEDS: Ipratropium/Albuterol 3 ML NEB NEB SCH (22:56)
[2023-12-20 04:57] LABS: #Eosinphils 0.1 thou/uL (0.0-0.7); #Monocytes 1.5 thou/uL (0.11-0.59); #Neutrophils 8.5 thou/uL (1.40-6.50); %Basophils 0.2 % (0.0-1.0); %Eosinophils 0.5 % (0.0-10.0); %Neutrophils 81.4 % (42.0-75.0); Hematocrit 23.4 % (42.0-52.0); Hemoglobin 7.9 g/dL (14.0-18.0); Mean Corpuscular HGB CONC 33.8 g/dL (32.0-36.0); Mean Corpuscular Hemoglobin 31.6 pg (27.0-31.0); Mean Corpuscular Volume 93.6 fl (78.0-98.0); Mean Platelet Volume 10.3 fL (7.4-10.4); Platelet Count 216 10x3/uL (130-400); RBC Distribution Width 19.9 % (11.5-14.5); White Blood Cell (WBC) Count 10.4 10x3/uL (4.8-10.8)
[2023-12-20 05:30] LABS: Anion Gap 21 mmol/L (10-20); BUN (Urea Nitrogen) 77 mg/dL (8.4-25.7); Calc. Creatinine Clearance 18 mL/min (70-130); Calcium 9.9 mg/dL (7.8-10.44); Carbon Dioxide 20 mmol/L (23-31); Chloride 98 mmol/L (98-107); Estimated GFR 19; Glucose 117 mg/dL (83-110); Potassium 5.5 mmol/L (3.5-5.1); Sodium 133 mmol/L (136-145)
[2023-12-20] MEDS: LOKELMA 10 GM PACKET PO SCH (09:07)
[2023-12-20] MEDS ORDERED: Epoetin (ESRD) 10,000 UNITS/ML VIAL SC SCH (10:15)
[2023-12-20] MEDS: EPOETIN ALFA-EPBX (ESRD) 10,000 UNITS/ML VIAL SC SCH (12:21)
[2023-12-20] MEDS ORDERED: Lorazepam 1 MG TAB PO PRN (13:29)
[2023-12-20] MEDS: Octreotide Acetate 50 MCG/ML AMP SLOW IVP SCH (14:31)
[2023-12-20] MEDS: Octreotide Acetate 1,250 MCG in Sodium Chloride 0.9% 250 ML 250 ML IVPB SCH (15:36)
[2023-12-21 06:44] LABS: #Eosinphils 0.3 thou/uL (0.0-0.7); #Monocytes 1.2 thou/uL (0.11-0.59); #Neutrophils 5.6 thou/uL (1.40-6.50); %Basophils 0.3 % (0.0-1.0); %Eosinophils 3.8 % (0.0-10.0); %Lymphocytes 6.3 % (21.0-51.0); %Monocytes 15.7 % (0.0-10.0); %Neutrophils 73.1 % (42.0-75.0); Hematocrit 23.4 % (42.0-52.0); Hemoglobin 7.8 g/dL (14.0-18.0); Mean Corpuscular HGB CONC 33.3 g/dL (32.0-36.0); Mean Corpuscular Hemoglobin 31.3 pg (27.0-31.0); Mean Platelet Volume 10.2 fL (7.4-10.4); Platelet Count 213 10x3/uL (130-400); RBC Distribution Width 20.2 % (11.5-14.5); Red Blood Cell (RBC) Count 2.49 mill/uL (4.70-6.10); White Blood Cell (WBC) Count 7.6 10x3/uL (4.8-10.8)
[2023-12-21 07:01] LABS: Anion Gap 23 mmol/L (10-20); BUN (Urea Nitrogen) 89 mg/dL (8.4-25.7); Calc. Creatinine Clearance 16 mL/min (70-130); Calcium 9.4 mg/dL (7.8-10.44); Carbon Dioxide 19 mmol/L (23-31); Chloride 99 mmol/L (98-107); Estimated GFR 17; Glucose 117 mg/dL (83-110); Potassium 4.9 mmol/L (3.5-5.1); Sodium 136 mmol/L (136-145)
[2023-12-21] MEDS ORDERED: Lorazepam 0.5 MG TAB PO PRN (13:29)
[2023-12-21] MEDS ORDERED: Etomidate 40 MG (20 mL) VIAL ONE (13:30)
[2023-12-21] MEDS ORDERED: Midazolam HCl 2 mg/2 ml Vial ONE (13:30)
[2023-12-21] MEDS ORDERED: Ketamine In 0.9 % NaCl 50 MG/5 ML SYRINGE ONE (13:30)
[2023-12-21] MEDS ORDERED: ePHEDrine Sulfate 50 MG/10 ML VIAL ONE (13:47)
[2023-12-21] MEDS: Thiamine 100 MG TAB PO SCH (16:01)
[2023-12-21] MEDS: Metoprolol Tartrate 5 MG (5 mL) VIAL ONE (16:11)
[2023-12-21] MEDS: Metoprolol Tartrate 5 MG (5 mL) VIAL IVP SCH (16:11)
[2023-12-21] MEDS: predniSONE 20 MG TAB PO SCH (17:04)
[2023-12-21] MEDS: Mometasone 200 MCG/Formoterol 5 MCG 120 PUFF INHALER INH SCH (17:54)
[2023-12-21] MEDS: Metoprolol Tartrate 25 MG TAB PO SCH (22:07)
[2023-12-22 04:48] LABS: #Monocytes 0.5 thou/uL (0.11-0.59); #Neutrophils 7.7 thou/uL (1.40-6.50); %Basophils 0.1 % (0.0-1.0); %Lymphocytes 2.6 % (21.0-51.0); %Monocytes 5.4 % (0.0-10.0); %Neutrophils 91.2 % (42.0-75.0); Hematocrit 26.7 % (42.0-52.0); Hemoglobin 8.6 g/dL (14.0-18.0); Mean Corpuscular HGB CONC 32.2 g/dL (32.0-36.0); Mean Platelet Volume 10.1 fL (7.4-10.4); Platelet Count 275 10x3/uL (130-400); Red Blood Cell (RBC) Count 2.69 mill/uL (4.70-6.10); White Blood Cell (WBC) Count 8.5 10x3/uL (4.8-10.8)
[2023-12-22 05:40] LABS: Anion Gap 21 mmol/L (10-20); BUN (Urea Nitrogen) 88 mg/dL (8.4-25.7); Calc. Creatinine Clearance 18 mL/min (70-130); Carbon Dioxide 19 mmol/L (23-31); Chloride 100 mmol/L (98-107); Estimated GFR 18; Glucose 145 mg/dL (83-110); Potassium 5.3 mmol/L (3.5-5.1); Sodium 135 mmol/L (136-145)
[2023-12-22 05:46] LABS: Mean Corpuscular Volume 99.3 fl (78.0-98.0)
[2023-12-22] MEDS: Mometasone 200 MCG/Formoterol 5 MCG 120 PUFF INHALER INH SCH (06:44)
[2023-12-22] MEDS: predniSONE 20 MG TAB PO SCH (08:30)
[2023-12-22] MEDS: Sodium Bicarb 50 mEq/50 ML VIAL ONE (11:56)
[2023-12-22] MEDS: Metoprolol Tartrate 25 MG TAB PO SCH ×2 (20:50→21:30)
[2023-12-22] MEDS: Benzocaine/Menthol 1 LOZ LOZ PO PRN (23:54)
[2023-12-23 05:52] LABS: #Monocytes 1.5 thou/uL (0.11-0.59); #Neutrophils 6.1 thou/uL (1.40-6.50); %Basophils 0.1 % (0.0-1.0); %Monocytes 19.1 % (0.0-10.0); %Neutrophils 74.9 % (42.0-75.0); Hematocrit 25.4 % (42.0-52.0); Hemoglobin 8.3 g/dL (14.0-18.0); Mean Corpuscular HGB CONC 32.7 g/dL (32.0-36.0); Mean Corpuscular Hemoglobin 31.8 pg (27.0-31.0); Mean Corpuscular Volume 97.3 fl (78.0-98.0); Mean Platelet Volume 10.4 fL (7.4-10.4); Platelet Count 292 10x3/uL (130-400); RBC Distribution Width 20.6 % (11.5-14.5); Red Blood Cell (RBC) Count 2.61 mill/uL (4.70-6.10); White Blood Cell (WBC) Count 8.1 10x3/uL (4.8-10.8)
[2023-12-23 06:14] LABS: Anion Gap 20 mmol/L (10-20); BUN (Urea Nitrogen) 94 mg/dL (8.4-25.7); Calc. Creatinine Clearance 20 mL/min (70-130); Calcium 9.2 mg/dL (7.8-10.44); Carbon Dioxide 21 mmol/L (23-31); Chloride 98 mmol/L (98-107); Estimated GFR 22; Glucose 144 mg/dL (83-110); Potassium 4.7 mmol/L (3.5-5.1); Sodium 134 mmol/L (136-145)
[2023-12-23] MEDS ORDERED: Metoprolol Tartrate 25 MG TAB PO SCH (09:00)
[2023-12-23] MEDS: Ipratropium/Albuterol 3 ML NEB NEB SCH ×2 (18:48→23:19)
[2023-12-24 06:14] LABS: Calcium 9.5 mg/dL (7.8-10.44); Chloride 102 mmol/L (98-107); Glucose 139 mg/dL (83-110); Potassium 4.2 mmol/L (3.5-5.1); Sodium 136 mmol/L (136-145)
[2023-12-24 06:16] LABS: Anion Gap 17 mmol/L (10-20); Carbon Dioxide 21 mmol/L (23-31)
[2023-12-24 06:18] LABS: Calc. Creatinine Clearance 25 mL/min (70-130); Estimated GFR 28
[2023-12-24 06:19] LABS: BUN (Urea Nitrogen) 97 mg/dL (8.4-25.7)
[2023-12-24 15:40] VITALS: BP 131/63; TEMP 97.7
== END 2023-12-24 16:50 | disposition home or self-care (01) | DRG 682 ==
LOC: ERS 08:02 → ERHOLD 10:22 → CCU 10:25 → 2NO 12-23 18:20
PROVIDERS: ADMIT Internal Medicine; ATTEND Family Medicine
PROC: 30243N1 Transfusion of Nonautologous Red Blood Cells into Central Vein, Percutaneous Approach (ICD-10-PCS; 2023-12-18)
PROC: 0DJ08ZZ Inspection of Upper Intestinal Tract, Via Natural or Artificial Opening Endoscopic (ICD-10-PCS; principal; 2023-12-21)
DX: N17.9 Acute kidney failure, unspecified (principal); I50.33 Acute on chronic diastolic (congestive) heart failure; J96.01 Acute respiratory failure with hypoxia; R57.8 Other shock; I13.0 Hypertensive heart and chronic kidney disease with heart failure and stage 1 through stage 4 chronic kidney disease, or unspecified chronic kidney disease; J44.1 Chronic obstructive pulmonary disease with (acute) exacerbation; K76.6 Portal hypertension; I48.20 Chronic atrial fibrillation, unspecified; K92.2 Gastrointestinal hemorrhage, unspecified; I85.10 Secondary esophageal varices without bleeding; N18.4 Chronic kidney disease, stage 4 (severe); E78.5 Hyperlipidemia, unspecified; E87.5 Hyperkalemia; F10.10 Alcohol abuse, uncomplicated; K70.30 Alcoholic cirrhosis of liver without ascites; D63.1 Anemia in chronic kidney disease; E87.6 Hypokalemia; K76.82 Hepatic encephalopathy; K31.89 Other diseases of stomach and duodenum; Z86.73 Personal history of transient ischemic attack (TIA), and cerebral infarction without residual deficits; Z79.01 Long term (current) use of anticoagulants; Z88.0 Allergy status to penicillin; Z91.030 Bee allergy status; Z79.899 Other long term (current) drug therapy; Z87.891 Personal history of nicotine dependence
CPT/HCPCS: 36415; 36416; 36430; 36600; 71045; 76705; 80048; 80053; 82140; 82728; 82805; 83540; 83550; 83735; 83880; 84443; 84484; 85025; 86850; 86900; 86901; 93005; 93306; 94640; 96361; 96374; 96375; C9113; J0461; J0613; J1250; J1630; J1815; J2250; J2354; J3411; J3490; J7050; J7512; J7611; J7620; J7999; P9016; P9047; Q5105

== ENCOUNTER 2023-12-25 | Inpatient (IN) | payer MEDICARE | END 2023-12-28 15:00 | disposition home or self-care (01) | DRG 292 | PROVIDERS: ADMIT Student in an Organized Health Care Education/Training Program | PROC: 0HQLXZZ Repair Left Lower Leg Skin, External Approach (ICD-10-PCS; principal; 2023-12-25) | DX: I50.33 Acute on chronic diastolic (congestive) heart failure (principal); I48.20 Chronic atrial fibrillation, unspecified; N18.4 Chronic kidney disease, stage 4 (severe); I48.21 Permanent atrial fibrillation; N17.9 Acute kidney failure, unspecified; J44.9 Chronic obstructive pulmonary disease, unspecified; S81.812A Laceration without foreign body, left lower leg, initial encounter; D63.8 Anemia in other chronic diseases classified elsewhere; E78.5 Hyperlipidemia, unspecified; M10.9 Gout, unspecified; E87.5 Hyperkalemia; K74.60 Unspecified cirrhosis of liver; F10.10 Alcohol abuse, uncomplicated; I25.10 Atherosclerotic heart disease of native coronary artery without angina pectoris; Z88.0 Allergy status to penicillin; Z91.048 Other nonmedicinal substance allergy status; Z79.899 Other long term (current) drug therapy; Z79.51 Long term (current) use of inhaled steroids; W19.XXXA Unspecified fall, initial encounter; Z86.73 Personal history of transient ischemic attack (TIA), and cerebral infarction without residual deficits; Z98.890 Other specified postprocedural states ==

== ENCOUNTER 2024-01-08 11:18 | Inpatient (IN) | payer MEDICARE ==
[2024-01-08 13:34] LABS: #Basophils 0.03 10x3/uL (0.0-0.2); %Basophils 0.2 % (0.0-1.0); %Lymphocytes 4.9 % (21.0-51.0); %Monocytes 9.3 % (0.0-10.0); %Neutrophils 80.7 % (42.0-75.0); Hemoglobin 9.9 g/dL (14.0-18.0); Mean Corpuscular HGB CONC 34.1 g/dL (32.0-36.0); Mean Corpuscular Hemoglobin 31.6 pg (27.0-31.0); Mean Corpuscular Volume 92.7 fL (78.0-98.0); Mean Platelet Volume 10.7 fL (7.4-10.4); Platelet Count 216 10x3/uL (130-400); RBC Distribution Width 20.4 % (11.5-14.5); Red Blood Cell (RBC) Count 3.13 mill/uL (4.70-6.10)
[2024-01-08 13:54] LABS: Troponin I 0.053 ng/mL (< 0.028)
[2024-01-08 13:58] LABS: ALT (SGPT) 53 U/L (8-55); AST (SGOT) 47 U/L (5-34); Alkaline Phosphatase 247 U/L (40-110); Anion Gap 15 mmol/L (10-20); BUN (Urea Nitrogen) 40 mg/dL (8.4-25.7); Bilirubin, Total 1.4 mg/dL (0.2-1.2); Calc. Creatinine Clearance 0 mL/min (70-130); Calcium 9.5 mg/dL (7.8-10.44); Carbon Dioxide 31 mmol/L (23-31); Chloride 95 mmol/L (98-107); Estimated GFR 46; Globulin 3.3 g/dL (2.4-3.5); Glucose 156 mg/dL (83-110); Magnesium 2.1 mg/dL (1.6-2.6); Potassium 3.8 mmol/L (3.5-5.1); Protein, Total 7.3 g/dL (5.8-8.1); Sodium 137 mmol/L (136-145)
[2024-01-08 15:27] LABS: INR-International Normal Ratio 1.4; Prothrombin Time 16.8 sec (12.0-14.7)
[2024-01-08 15:29] LABS: PTT 31.2 sec (22.9-36.1)
[2024-01-08] MEDS ORDERED: Lactulose 20 GM (30 mL) UDCUP ONE (15:32)
[2024-01-08] MEDS ORDERED: Calcium Carbonate 500 MG ChewTAB PO PRN (16:34)
[2024-01-08] MEDS ORDERED: Senokot S 8.6-50 MG TAB PO PRN (16:34)
[2024-01-08] MEDS ORDERED: Ondansetron PF 4 MG/2 ML Vial IVP PRN (16:34)
[2024-01-08] MEDS ORDERED: Acetaminophen 325 MG TAB PO PRN (16:34)
[2024-01-08 17:08] LABS: Bacteria/HPF 2+ HPF (None Seen); Bilirubin Negative (Negative); Blood, Urine Negative (Negative); CAUTI Indications for Culture Alt mental st,lethar; Clarity Turbid (Clear); Glucose, Urine (Dipstick) Greater than 1000 mg/dL (Negative); Ketone, Urine Negative (Negative); Leukocyte 500 Leu/uL (Negative); Nitrite Negative (Negative); Protein, Urine (Dipstick) Negative (Neg-Trace); RBC/HPF 0-3 HPF (0-3); Squamous Epithelial None Seen HPF (0-3); Urobilinogen Normal mg/dL (Less than 2); WBC/HPF Greater than 50 HPF (0-3); pH, Urine 7.5 (5.0-9.0)
[2024-01-08 17:11] LABS: Urine Culture Reflex Yes Yes
[2024-01-08 19:11] VITALS: BMI 18.3
[2024-01-08] MEDS: Albumin 25% 25 GM (100 mL) BOT IVPB SCH (19:23)
[2024-01-08 20:22] LABS: Troponin I 0.037 ng/mL (< 0.028)
[2024-01-08] MEDS: Apixaban 2.5 MG TAB PO SCH (20:58)
[2024-01-08] MEDS: Lactulose 20 GM (30 mL) UDCUP PO SCH (20:58)
[2024-01-08] MEDS: LevoFLOXacin 750 mg/D5W 750 MG in Premix 1 BAG IVPB SCH (20:59)
[2024-01-08] MEDS ORDERED: Bumetanide 1 MG TAB PO SCH (21:00)
[2024-01-09 04:27] LABS: #Basophils Less than 0.03 10x3/uL (0.0-0.2); %Basophils 0.2 % (0.0-1.0); %Eosinophils 4.3 % (0.0-10.0); %Monocytes 12.4 % (0.0-10.0); %Neutrophils 73.6 % (42.0-75.0); Hematocrit 26.4 % (42.0-52.0); Hemoglobin 8.9 g/dL (14.0-18.0); Mean Corpuscular HGB CONC 33.7 g/dL (32.0-36.0); Mean Corpuscular Hemoglobin 31.8 pg (27.0-31.0); Mean Corpuscular Volume 94.3 fL (78.0-98.0); Platelet Count 195 10x3/uL (130-400); RBC Distribution Width 20.9 % (11.5-14.5)
[2024-01-09 05:01] LABS: Phosphorus 4.5 mg/dL (2.3-4.7)
[2024-01-09 05:03] LABS: ALT (SGPT) 43 U/L (8-55); AST (SGOT) 40 U/L (5-34); Albumin 4.3 g/dL (3.4-4.8); Alkaline Phosphatase 216 U/L (40-110); Anion Gap 18 mmol/L (10-20); BUN (Urea Nitrogen) 40 mg/dL (8.4-25.7); Bilirubin, Total 1.5 mg/dL (0.2-1.2); Calc. Creatinine Clearance 29 mL/min (70-130); Carbon Dioxide 28 mmol/L (23-31); Chloride 98 mmol/L (98-107); Estimated GFR 42; Globulin 2.8 g/dL (2.4-3.5); Glucose 115 mg/dL (83-110); Magnesium 2.3 mg/dL (1.6-2.6); Potassium 3.6 mmol/L (3.5-5.1); Protein, Total 7.1 g/dL (5.8-8.1); Sodium 140 mmol/L (136-145)
[2024-01-09] MEDS: Mometasone 200 MCG/Formoterol 5 MCG 120 PUFF INHALER INH SCH (07:03)
[2024-01-09] MEDS: Empagliflozin 10 MG TAB PO SCH (09:24)
[2024-01-09] MEDS: Ferrous Sulfate 325 MG TAB PO SCH (09:24)
[2024-01-09] MEDS: Rosuvastatin 5 MG TAB PO SCH (09:24)
[2024-01-09] MEDS: Spironolactone 25 MG TAB PO SCH (09:24)
[2024-01-09] MEDS: Magnesium Oxide 400 MG TAB PO SCH (09:24)
[2024-01-09] MEDS: Allopurinol 100 MG TAB PO SCH (09:24)
[2024-01-09] MEDS: Folic Acid 1 MG TAB PO SCH (09:24)
[2024-01-09] MEDS: Lactulose 20 GM (30 mL) UDCUP PO SCH ×2 (13:16→20:24)
[2024-01-09] MEDS: Metoprolol Tartrate 25 MG TAB PO SCH (20:23)
[2024-01-10] MEDS: Saccharomyces boulardii 250 MG CAP PO SCH (08:16)
[2024-01-10] MEDS: Thiamine 100 MG TAB PO SCH (08:17)
[2024-01-10] MEDS ORDERED: Metolazone 5 MG TAB PO SCH (09:00)
[2024-01-10] MEDS: LevoFLOXacin 750 mg/D5W 750 MG in Premix 1 BAG IVPB SCH (21:00)
[2024-01-11 07:16] LABS: #Basophils Less than 0.03 10x3/uL (0.0-0.2); %Basophils 0.3 % (0.0-1.0); %Eosinophils 10.7 % (0.0-10.0); %Lymphocytes 7.8 % (21.0-51.0); %Monocytes 11.9 % (0.0-10.0); %Neutrophils 68.1 % (42.0-75.0); Hematocrit 28.3 % (42.0-52.0); Hemoglobin 9.3 g/dL (14.0-18.0); Mean Corpuscular HGB CONC 32.9 g/dL (32.0-36.0); Mean Corpuscular Hemoglobin 31.3 pg (27.0-31.0); Mean Corpuscular Volume 95.3 fL (78.0-98.0); Mean Platelet Volume 9.4 fL (7.4-10.4); Platelet Count 188 10x3/uL (130-400); RBC Distribution Width 20.9 % (11.5-14.5); Red Blood Cell (RBC) Count 2.97 mill/uL (4.70-6.10)
[2024-01-11 07:31] LABS: ALT (SGPT) 50 U/L (8-55); AST (SGOT) 54 U/L (5-34); Albumin 4.5 g/dL (3.4-4.8); Alkaline Phosphatase 255 U/L (40-110); Anion Gap 17 mmol/L (10-20); BUN (Urea Nitrogen) 29 mg/dL (8.4-25.7); Bilirubin, Total 1.8 mg/dL (0.2-1.2); Calc. Creatinine Clearance 27 mL/min (70-130); Carbon Dioxide 23 mmol/L (23-31); Chloride 100 mmol/L (98-107); Estimated GFR 40; Glucose 109 mg/dL (83-110); Potassium 3.7 mmol/L (3.5-5.1); Protein, Total 7.5 g/dL (5.8-8.1); Sodium 136 mmol/L (136-145)
[2024-01-11 11:52] VITALS: BP 131/58; TEMP 98.8
== END 2024-01-11 13:29 | disposition left against medical advice (07) | DRG 442 ==
LOC: ERS 11:18 → SUATTDRO 11:18 → 2SW 16:26 → OBSVTOIN 01-10 10:39
PROVIDERS: ADMIT Internal Medicine; ATTEND Internal Medicine
DX: K76.82 Hepatic encephalopathy (principal); I13.0 Hypertensive heart and chronic kidney disease with heart failure and stage 1 through stage 4 chronic kidney disease, or unspecified chronic kidney disease; N39.0 Urinary tract infection, site not specified; I50.32 Chronic diastolic (congestive) heart failure; E78.5 Hyperlipidemia, unspecified; N18.9 Chronic kidney disease, unspecified; K70.30 Alcoholic cirrhosis of liver without ascites; I48.91 Unspecified atrial fibrillation; J44.9 Chronic obstructive pulmonary disease, unspecified; S81.812A Laceration without foreign body, left lower leg, initial encounter; D63.1 Anemia in chronic kidney disease; Z88.0 Allergy status to penicillin; Z91.030 Bee allergy status; Z79.899 Other long term (current) drug therapy
CPT/HCPCS: 36415; 70450; 71045; 80048; 80053; 81001; 82040; 82043; 82140; 83605; 83735; 83880; 83970; 84100; 84145; 84156; 84484; 85025; 85610; 85730; 86038; 86225; 87077; 87086; 87186; 93005; 96374; 96375; 96376; G0378; J1956; P9047

== ENCOUNTER 2024-03-18 13:25 | Outpatient (CLI) | payer MEDICARE ==
[~2024-03-18 13:25] MED LIST: Iopamidol 370 76% 100 ML VIAL ONE
== END 2024-03-18 13:26 | disposition home or self-care (01) ==
LOC: BICCT 13:25
PROVIDERS: ATTEND Internal Medicine Cardiovascular Disease
DX: I77.9 Disorder of arteries and arterioles, unspecified (principal); I65.21 Occlusion and stenosis of right carotid artery
CPT/HCPCS: 70498; Q9967